=== PATIENT | female | born 1980 ===

== ENCOUNTER 2025-03-01 10:22 | Outpatient (CLI) | payer OTHER, SELFPAY | END 2025-03-01 10:23 | disposition home or self-care (01) | PROVIDERS: Visit Provider Registered Nurse | DX: Z00.01 Encounter for general adult medical examination with abnormal findings (principal); D64.9 Anemia, unspecified; Z13.6 Encounter for screening for cardiovascular disorders | CPT/HCPCS: 80061; 82728 ==

== ENCOUNTER 2025-08-11 08:54 | Outpatient (CLI) | payer OTHER, SELFPAY | END 2025-08-11 08:55 | disposition home or self-care (01) | PROVIDERS: PCP Nurse Practitioner Family; Visit Provider Nurse Practitioner Family | DX: N92.0 Excessive and frequent menstruation with regular cycle (principal) | CPT/HCPCS: 84443; 85025 ==